=== PATIENT | female | born 1990 ===

== ENCOUNTER 2021-01-22 06:32 | Day surgery (SDC) | payer OTHER ==
[2021-01-22] MEDS ORDERED: ULTRACET PO (09:48)
== END 2021-01-22 11:23 | disposition home or self-care (01) ==
LOC: CIR.AMB 06:32
PROVIDERS: ATTEND Surgery
DX: D17.1 Benign lipomatous neoplasm of skin and subcutaneous tissue of trunk (principal); Z20.822 Contact with and (suspected) exposure to COVID-19